=== PATIENT | female | born 1980 | race Caucasian/White ===

== ENCOUNTER 2022-07-11 04:07 | Emergency (ER) | payer BC ==
[2022-07-11 04:29] VITALS: BP 128/67; PULSE 90
[2022-07-11] MEDS ORDERED: Sodium Chloride 0.9% 1,000 ML IV ONE (04:36)
[2022-07-11 05:15] LABS: CORONAVIRUS COVID-19 NAA NEGATIVE (NEGATIVE)
[2022-07-11] MEDS ORDERED: methylPREDNISolone Sodium Succinate 125 MG/2 ML SDV IVPUSH ONE (05:57)
== END 2022-07-11 06:32 | disposition home or self-care (01) ==
LOC: JD.ED 04:07
DX: E27.1 Primary adrenocortical insufficiency (principal); Z20.822 Contact with and (suspected) exposure to COVID-19
CPT/HCPCS: 0241U; 36415; 80053; 85025; 96361; 96374; 99284; J2930; J7030